=== PATIENT | female | born 1975 | race Caucasian/White ===

== ENCOUNTER 2021-03-09 17:17 | Emergency (ER) | payer OTHER ==
--- OUTSIDE RECORDS SUMMARY | 2021-03-09 17:21 | XMS REPORT | Continuity of Care Document ---
:1975 Author Organization [facility] t Address [address] [place] [address] [address] [place] [address] Care Team Providers Name Role Phone Genny Orantes Attending Clinician Doctor Unassigned, Name Attending Clinician Unavailable Anam BANGURA Attending Clinician My PERKINS S Attending Clinician Kip BANGURA L Attending Clinician Problems This patient has no known problems. Allergies, Adverse Reactions, Alerts This patient has no known allergies or adverse reactions. Medications This patient has no known medications. Procedures This patient has no known procedures. Encounters Start End Encounter Admission Attending Care Care Encounter Source Date/Time Date/Time Type Type Clinicians Facility Department ID 2021-03-08 2021-03-08 Emergency Marky RUST [id number] [id number] 20:38:00 23:06:00 Taisha Monzon [id number] [place] [id number] [place] [id number] 2021-03-08 2021-03-08 Orders Doctor LINDA [id number] 00:00:00 00:00:00 Only PUMA Garner [id number] [place] [facility] [id number] 2021-02-21 2021-02-21 Refill Anam RUST [id number] 00:00:00 00:00:00 Venkata Monzon [id number] [place] [id number] [place] [phone] nal 044 Building 2021-02-05 2021-02-05 [facility] [id number] 08:27:54 08:42:54 Visit [facility] [id number] Surgical [id number] Specialti [phone] [address] [place] 2021-01-21 2021-01-21 [facility] [id number] 11:02:00 23:59:00 Encounter Justin BHATT [id number] [place] [id number] 2021-01-21 2021-01-21 Orders Doctor ALEXEI [id number] 00:00:00 00:00:00 Only Unassigned, PUMA [id number] [place] [facility] [id number] Results This patient has no known results.
--- NOTE | 2021-03-09 19:47 | ER ---
Nurse's Notes [facility] Name: Yuko Flores Age: 45 yrs Sex: Female : 1975 Arrival Date: 03/09/2021 Time: 17:20 Bed 14 Private MD: Diagnosis: Presentation: 03/09 17:37 Chief complaint: Patient states: Slipped and fell 2 days [employer]. Did not notice my toe was ca1 hurt cause I have neuropathy. Now I feel pain, it's also red and swollen. Redness and swelling, bruise on 3rd toe on R foot. I also have bad sinus infection that I have been dealing with in the last 6 - 7 months. Coronavirus screen: Client denies travel out of the [place] in the last 14 days. congestion, runny nose, Client presents with at least one sign or symptom that may indicate coronavirus-19. Standard/surgical mask placed on the client. Provider contacted for isolation considerations. Ebola Screen: Patient negative for fever greater than or equal to 101.5 degrees Fahrenheit, and additional compatible Ebola Virus Disease symptoms Patient denies exposure to infectious person. Patient denies travel to an Ebola-affected area in the 21 days before illness onset. No symptoms or risks identified at this time. Initial Sepsis Screen: Does the patient meet any 2 criteria? No. Patient's initial sepsis screen is negative. Does the patient have a suspected source of infection? No. Patient's initial sepsis screen is negative. Risk Assessment: Do you want to hurt yourself or someone else?. Onset of symptoms was March 09, 2021. 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 Flu vaccine is up to date. - Social history:: Smoking status: Patient reports the use of cigarette tobacco products, smokes one pack cigarettes per day. Vital Signs: 17:37 BP 143 / 76; Pulse 100; Resp 20 S; Temp 98.6(TE); Pulse Ox 95% on R/A; Weight 124.74 kg ca1 (R); Height 6 ft. 0 in. (182.88 cm) (R); Pain 10/10; 17:37 Body Mass Index 37.30 (124.74 kg, 182.88 cm) ca1 ED Course: 17:20 Patient arrived in ED. rg4 17:40 Triage completed. ca1 17:41 Arm band placed on right wrist. ca1 19:46 Erasmo Flores MD is Attending Physician. gabriela Administered Medications: No medications were administered Outcome: 19:47 Patient left the ED. em Signatures: Erasmo Flores MD MD cha Munoz, Edgar, RN RN em Gabriella Raymundo rg4 Syeda Estrada RN RN ca1
[2021-03-09 19:52] VITALS: BP 143/76; TEMP 98.6; O2SAT 95
== END 2021-03-09 19:47 | disposition left against medical advice (07) ==
LOC: ER 17:17
DX: Z02.9 Encounter for administrative examinations, unspecified (principal)
CPT/HCPCS: 99281